=== PATIENT | female | born 1955 | race Caucasian/White ===

== ENCOUNTER 2019-03-08 09:37 | Outpatient (CLI) | payer OTHER ==
[~2019-03-08 09:37] MED LIST: GADOBUTROL 10 MMOL/10 ML VIAL ONE
[2019-03-08] MEDS ORDERED: GADOBUTROL 10 MMOL/10 ML VIAL IVP ONE (10:37)
--- NOTE | 2019-03-08 11:48 | MRI Report ---
Reason: MENINGIOMA Procedure Date: 03/08/2019 Accession Number: [id number] / [id number] Procedure: MRI - Brain W/WO CPT Code: FULL RESULT: EXAM: MRI BRAIN WITHOUT AND WITH CONTRAST EXAM DATE: 03/08/2019 10:48 AM. CLINICAL HISTORY: Stated diagnosis of meningioma. Intracranial mass follow-up is requested. Previously reported densely calcified dural-based anterior left parafalcine frontal region abnormality. COMPARISON: None. TECHNIQUE: Multiplanar, multisequence T1-weighted and fluid-sensitive MR sequences of the brain were performed before and after administration of intravenous contrast. Sequences optimized for routine evaluation. Other: None. IV Contrast: 7 mL Gadavist. FINDINGS: Far left anterior parafalcine extra-axial dural based ovoid lesion that shows essentially complete absence of signal consistent with a densely calcified process. Minimal if any associated enhancement. This lesion measures about 14 mm AP, 19 mm transverse and 17 mm craniocaudal. No significant impingement of the adjacent brain. Unremarkable appearance of the adjacent frontal bone. The appearance is of a chronic benign calcified process, possibly meningioma. No other evidence for intracranial enhancing or space-occupying lesion. No acute abnormality such as hemorrhage, stroke or hydrocephalus. Normal MRI appearance of the brain for age. No significant white matter signal changes. Contrast opacification of the major dural venous sinuses is present as expected. The major arterial skull base flow voids are present. Previous lens extractions from the globes. Nonspecific patchy and confluent inferior and lateral right mastoid fluid signal. IMPRESSION: 1. Findings are consistent with densely mineralized benign appearing extraaxial dural based far anterior left parafalcine lesion which may be a chronically calcified meningioma. No impingement of the adjacent brain. 2. No acute intracranial abnormality, age-appropriate appearance of the brain. 3. Right mastoid fluid signal. RADIA
== END 2019-03-08 09:38 | disposition home or self-care (01) ==
LOC: DI 09:37
PROVIDERS: ATTEND Physician Assistant Medical
DX: D32.0 Benign neoplasm of cerebral meninges (principal)
CPT/HCPCS: 70553; A9585

== ENCOUNTER 2023-01-05 02:07 | Inpatient (IN) | payer MEDICARE, OTHER ==
[2023-01-05] MEDS ORDERED: MORPHINE 10 MG/ML VIAL IVP STA ×2 (02:18→06:08)
[2023-01-05] MEDS ORDERED: ONDANSETRON 4 MG/2 ML VIAL IVP STA (02:18)
[2023-01-05] MEDS ORDERED: SODIUM CHLORIDE 0.9% 1,000 ML IV STA ×3 (02:18→06:07)
[2023-01-05 02:26] LABS: BASOPHILS % (AUTO) 0.6 %; EOSINOPHILS # (AUTO) 0.1 10^3/uL (0.0-0.7); EOSINOPHILS % (AUTO) 1.5 %; HCT - HEMATOCRIT 32.2 % (37.0-47.0); HGB - HEMOGLOBIN 9.5 g/dL (12.0-16.0); LYMPHOCYTES # (AUTO) 1.5 10^3/uL (1.5-3.5); LYMPHOCYTES % (AUTO) 21.9 %; MEAN CORPUSCULAR HEMOGLOBIN 26.3 pg (27.0-31.0); MEAN CORPUSCULAR HGB CONC 29.5 g/dL (32.0-36.0); MEAN CORPUSCULAR VOLUME 89.2 fL (81.0-99.0); MEAN PLATELET VOLUME 9.1 fL (7.9-10.8); MONOCYTES # (AUTO) 0.5 10^3/uL (0.0-1.0); MONOCYTES % (AUTO) 7.4 %; NEUTROPHILS # (AUTO) 4.7 10^3/uL (1.5-6.6); PLT - PLATELET COUNT 260 10^3/uL (130-450); RED BLOOD COUNT 3.61 10^6/uL (4.20-5.40); WHITE BLOOD COUNT 6.9 x10^3/uL (4.8-10.8)
[2023-01-05 02:30] LABS: SLIDE REVIEW? Indicated
[2023-01-05 02:40] LABS: ALBUMIN 4.1 g/dL (3.2-5.5); ALBUMIN/GLOBULIN RATIO 1.4 (1.0-2.2); BILIRUBIN,TOTAL 0.5 mg/dL (0.2-1.0); CALCIUM 9.3 mg/dL (8.5-10.3); CREATININE 0.9 mg/dL (0.4-1.0); POTASSIUM 4.2 mmol/L (3.5-5.0)
[2023-01-05 02:42] LABS: PLATELET ESTIMATE, MANUAL NORMAL (130-450,000) (NORMAL); PLATELET MORPHOLOGY NORMAL APPEARANCE (NORMAL); RBC MORPHOLOGY (MULTIPLE) 1+ ANISOCYTOSIS (NORMAL); WBC MORPHOLOGY (MULTIPLE) NORMAL APPEARANCE (NORMAL)
--- OUTSIDE RECORDS SUMMARY | 2023-01-05 02:53 | EXTERNAL MEDICAL SUMMARY RPT | Continuity of Care Document ---
Author Name Unknown Address [address] [place] [address] Phone Organization [place] Address [address] [place] [address] Phone Problems date description facility 2022-10-11 14:02 Anemia, unspecified [facility] 2022-10-11 14:02 Crohn's disease of s mall intestine without complications [facility] 2022-10-13 15:54 Crohn's disease of s mall intestine without complications [facility] 2022-12-21 11:52 [facility]:52 Crohn's disease of s mall intestine without complications [facility] 2022-12-21 11:52 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 [facility] 2022-12-21 11:52 Acquired absence of other specified parts of digestive tract [facility] 2022-12-21 11:55 [facility] 11:55 Crohn's disease of s mall intestine without complications [facility] 2022-12-21 11:55 [facility] (current) use of anti coagulants [facility] 2022-12-21 11:55 Acquired absence of other specified parts of digestive tract [facility] 2022-12-22 18:24 Iron deficiency anemia, unspeci [facility] 2022-12-22 18:24 Crohn's disease, unspecified, w [facility] 2022-12-25 08:28 Iron deficiency anemia, [facility] 2022-12-25 08:28 Crohn's disease, unspecified, w [facility] 2022-12-26 12:57 [facility]57 Crohn's disease, unspecified, [facility] 2022-12-26 13:17 [facility] 13:17 Crohn's disease, unspecified, w [facility] 2022-12-26 15:15 Iron deficiency anemia, unspeci [facility] 2022-12-26 15:15 Crohn's disease, unspecified, w [facility] Results/Labs test date facility value unit notes
[2023-01-05] MEDS ORDERED: MORPHINE 2 MG/ML CARPUJECT IVP STA ×2 (03:05→04:15)
--- NOTE | 2023-01-05 03:07 | ED Physician Documentation ---
PD HPI ABD PAIN - Stated complaint Stated Complaint: VOMITING - Chief complaint Chief Complaint: Abd Pain - History obtained from History obtained from: Patient - Additional information Additional information: 67yF with pmh crohns p/w cramping upper abdominal pain radiating diffusely, intermittent since 11pm with associated nbnb n/v. patient states she received iron infusions this week and is supposed to get crohns treatment remicaid for the first time tomorrow. denies blood in stool but states she regularly has about 7 episodes of loose stool daily. denies fever Review of Systems Constitutional: denies: Fever, Chills Cardiac: denies: Chest pain / pressure Respiratory: denies: Dyspnea GI: reports: Abdominal Pain, Nausea, Vomiting, Diarrhea. denies: Hematemesis, Bloody / black stool : denies: Dysuria PD PAST MEDICAL HISTORY - Past Medical History Cardiovascular: Other Respiratory: None Endocrine/Autoimmune: None GI: Ulcerative colitis : Kidney stones HEENT: None Psych: None Musculoskeletal: None Derm: None - Past Surgical History Past Surgical History: Yes General: Appendectomy, Bowel surgery, Colonoscopy, EGD /DOCK WORKER: Hysterectomy - Present Medications Home Medications: Ambulatory Orders Medication Instructions Recorded Confirmed Citalopram Hydrobromide [Celexa] 40 mg PO DAILY 02/04/13 04/21/15 Estradiol [Vivelle-Dot] 1 each TD ONCE 04/14/15 04/21/15 Fluticasone [Flonase] 1 sprays LUMA DAILY 04/14/15 04/21/15 Multivitamin [Multivitamins] 1 each PO DAILY 04/14/15 04/21/15 - Allergies Allergies/Adverse Reactions: Allergies Allergy/AdvReac Type Severity Reaction Status Date / Time hydromorphone HCl * Allergy Severe Hallucinati Verified 01/05/23 02:17 [From Dilaudid] ons Sulfa (Sulfonamide Allergy Unknown Unknown Verified 01/05/23 02:17 Antibiotics) Latex Bandages AdvReac Intermediate Rash Uncoded 01/05/23 02:17 - Social History Does the pt smoke?: No Smoking Status: Never smoker Does the pt drink ETOH?: Yes Does the pt have substance abuse?: No PD ED PE NORMAL - Vitals Vital signs reviewed: Yes - General General: Alert and oriented X 3, Well developed/nourished, Other (uncomfortable appearing) - HEENT HEENT: Atraumatic, PERRL - Neck Neck: Supple, no meningeal sign - Cardiac Cardiac: RRR - Respiratory Respiratory: No respiratory distress, Clear bilaterally - Abdomen Abdomen: Non tender, Non distended, Other (discomfort to palpation diffusely) - Rectal Rectal: Pt declined - Derm Derm: Normal color, Warm and dry Results - Vitals Vitals: Vital Signs - 24 hr 01/05/23 01/05/23 01/05/23 02:14 03:00 04:00 Temperature 36.2 C L Heart Rate 103 H 86 86 Respiratory 18 16 16 Rate Blood Pressure 143/94 H 123/78 130/77 O2 Saturation 99 99 100 Oxygen O2 Source Room air - Labs Labs: Laboratory Tests 01/05/23 01/05/23 01/05/23 02:22 02:22 05:18 WBC 6.9 RBC 3.61 L Hgb 9.5 L Hct 32.2 L MCV 89.2 MCH 26.3 L MCHC 29.5 L RDW 22.0 H Plt Count 260 MPV 9.1 Neut # (Auto) 4.7 Lymph # (Auto) 1.5 [place] # (Auto) 0.5 Eos # (Auto) 0.1 Baso # (Auto) 0.0 Absolute Nucleated RBC 0.00 Nucleated RBC % 0.0 Manual Slide Review Indicated WBC Morphology NORMAL APPEARANCE Platelet Estimate NORMAL (130-450,000) Platelet Morphology NORMAL APPEARANCE RBC Morph Micro Appear 1+ ANISOCYTOSIS Sodium 138 Potassium 4.2 Chloride 106 Carbon Dioxide 24 Anion Gap 8.0 BUN 15 Creatinine 0.9 Estimated GFR (MDRD) 63 L Glucose 117 H Calcium 9.3 Total Bilirubin 0.5 AST 33 ALT 25 Alkaline Phosphatase 64 Total Protein 7.0 Albumin 4.1 Globulin 2.9 Albumin/Globulin Ratio 1.4 Lipase 27 Urine Color YELLOW Urine Clarity CLEAR Urine pH 5.5 Ur Specific [place] 1.015 Urine Protein NEGATIVE Urine Glucose (UA) NEGATIVE Urine Ketones NEGATIVE Urine Occult Blood NEGATIVE Urine Nitrite NEGATIVE Urine Bilirubin NEGATIVE Urine Urobilinogen 0.2 (NORMAL) Ur Leukocyte Esterase NEGATIVE Ur Microscopic Review NOT INDICATED Urine Culture Comments NOT INDICATED PD Medical Decision Making - ED course ED course: 67yF with pmh crohns p/w diffuse cramping abdominal pain she associates with prior crohns flares. cbc, abdominal panel, IVF and morphine ordered. CBC showed anemia with hb 9.5, down from 11.3 on october 13, just 3 months prior. patient denies bloody stool and states she's been dealing with iron deficiency anemia and malabsorption for years. Patient tolerating ice chips, stated IV 4mg morphine brought pain down from 10/10 to 5/10. requesting more pain meds. declined CT a/p, stating this is c/w prior crohns flares. she is declining steroids or other meds, stating she is supposed to get remicaid treatment tomorrow morning. still with pain at 6am. SBO on CT. d/w commissioning agent surgeon Dr. Beckman who agrees to follow. plan to admit telehealth. Departure - Departure Disposition: 67 [facility] DC/Xfer Clinical Impression: SBO (small bowel obstruction) Condition: Stable
[2023-01-05] MEDS ORDERED: iohexoL-300 100 ML VIAL ONE (04:44)
[2023-01-05] MEDS ORDERED: iohexoL-300 100 ML VIAL IVP ONE (05:10)
[2023-01-05 05:28] LABS: BILIRUBIN,URINE NEGATIVE (NEGATIVE); GLUCOSE, URINE (UA) NEGATIVE (NEGATIVE); KETONES,URINE (UA) NEGATIVE (NEGATIVE); LEUKOCYTE ESTERASE, URINE NEGATIVE (NEGATIVE); NITRITE,URINE NEGATIVE (NEGATIVE); OCCULT BLOOD,URINE NEGATIVE (NEGATIVE); PH,URINE 5.5 PH (5.0-7.5); PROTEIN,URINE NEGATIVE (NEGATIVE); UROBILINOGEN,URINE 0.2 (NORMAL) E.U./dL (NORMAL)
[2023-01-05 05:29] LABS: CLARITY,URINE CLEAR (CLEAR)
--- NOTE | 2023-01-05 07:09 | HISTORY & PHYSICAL EXAMINATION ---
History and Physical - History and Physical chief complaint abdominal pain History of present illness this is a 67 year old female past medical history significant for Cronus, hypertension, anemia requiring transfusions and iron infusions, history of factor five lighting deficiency who presented to the emergency room with chief complaint of today's history of severe abdominal pain. It apparently started about yesterday in the afternoon she thought it was due to dehydration because in the past she's had similar symptoms so she attempted rhythm of fluid by getting to the evening it's getting worse and worse so she/she decided to seek medical attention. She describes pain as crampy intermittent in nature had one episode of vomiting which is described as nonbloody number Delos vomitus. [facility] patients also noted to have diarrhea because of ilio-anal surgery.patient also with history of DVT/PE workup showed that patient had factor V leiden deficiency on Eliquis for anticoagulation. Patient has had Crohn's for about 25 years was supposed to status Remicade today. in the emergency room patient was evaluated and workup showed patient had bowel obstruction and clinical patient abdomen was severely tender and mildly distended. Patient pain improved slightly with IV morphine in the emergency room. Was is a startling IV fluids will saline at hundred and 50 animals per hour. Consultation was placed with surgery as per the ED provider and the recommended patient admitted Lily consult on the patient. Patient appeared comfortable lay in bed speaking for sentences does not appear to be in acute distress. Past medical history include as above hypertension, iron deficiency anemia, factor five lighting deficiency, Crohn's colitis, Surgery patients status post hysterectomy, wedge resection,ilio-anal bypasssurgery Family history no not history of hypertension diabetes or coronary artery disease. Medications as listed [employer] systems total offenses and reviewed all negative other than those mentioned above Allergies to Dilaudid physical exam general appearance patient appeared comfortable in bed complain of abdominal pain awake and alert just received morphine so she seemed to be doing better in respondent. HEENT normocephalic atraumatic lungs are clear cardiovascular regular rate and rhythm Abdomen malady standard tender no rebound no garden bowel sounds positive no masses palpated. Extremities no edema versus no cyanosis no clubbing. Exams was done based on video nurse assisted Labs reviewed imagine reviewed assessments and plan Bowel obstruction appear to mechanical likely multifactorial with underlining grounds and history of strictures no history of adhesions. Patient admitted to medical service and the hospital steam NG tube placed in the emergency room IV fluids would normal saline at hundred 50 mph morphine 2 mg IV Q4 hours as needed for pain will adjust accordingly with the dating. Surgery was consulted in the museum will follow up with your recommendations History of PE/DVT factorV leiden will continue anticoagulation for now for Ray surgery at this point admitting there's going to be any surgical intervention appear to more conservative management IV fluid pain medication pain control. NG tube for decompression. And serial imaging. History of Crohn's patient was to start with Remicade will. Surgery may be G.I. be away in a patient need to be started. Iron deficiency anemia stable will monitor closely. Chronic diarrhea/high risk of dehydration IV fluids as above DVT prophylaxis patient on Eliquis GI prophylaxis not clinical indicated plan discussed the patient's and nurse at bedside as well as ED attending answer all questions to the best of my ability hospital SDT will take over in the morning. Dr Noemi Jaime
[2023-01-05] MEDS ORDERED: SODIUM CHLORIDE FLUSH 0.9% 10 ML SYRINGE IVP PRN (07:18)
[2023-01-05] MEDS ORDERED: ACETAMINOPHEN 325 MG TABLET PO PRN (07:18)
[2023-01-05] MEDS ORDERED: ONDANSETRON 4 MG/2 ML VIAL IVP PRN (07:18)
[2023-01-05] MEDS ORDERED: ESTRADIOL TD SCH (07:45)
--- NOTE | 2023-01-05 07:51 | CT Report ---
PROCEDURE: ABDOMEN/PELVIS W INDICATIONS: diffuse abd pain CONTRAST: Omni 300 100ml TECHNIQUE: After the administration of IV contrast, 5 mm thick sections acquired from the diaphragms to the symp hysis. 5 mm thick coronal and sagittal reformats were acquired. For radiation dose reduction, the f ollowing was used: automated exposure control, adjustment of mA and/or kV according to patient size. COMPARISON: CT of abdomen and pelvis with, 10/03/2013. FINDINGS: Image quality: Excellent. Lung bases and heart: Left basilar atelectasis. Small hiatal hernia. Liver: No solid mass. Gallbladder and biliary tree: There are gallstones. No biliary dilation. Spleen: No splenomegaly. Pancreas: No pancreatic ductal dilation. Adrenals: No adrenal nodule. Kidneys and ureters: No hydronephrosis. No renal cystic lesion which requires follow up. No solid mas s. Bowel and peritoneum: There is fluid in the stomach with an air-fluid level. Proximal small bowel loo ps are filled with fluid measuring up to 3.8 cm in diameter. There is transitional point distally in the mid abdomen, measuring involving the ileum. There are multiple air-fluid levels in small intestin e. The CT findings are suspicious for small bowel obstruction. There are postsurgical changes with to david colectomy. There is mild segmental thickening proximal to the ileoanal anastomosis. No pathologic free fluid. Lymph nodes: No central or retroperitoneal adenopathy. Vessels: No infrarenal aortic aneurysm. PELVIS Reproductive organs: Unremarkable. Bladder: No abnormal wall thickening, accounting for underdistension. Pelvic lymph nodes: No pelvic adenopathy by size criteria. Bones: No aggressive osseous abnormality. Scoliosis and degenerative changes in lumbar spine. Other: No significant ventral or inguinal hernia. IMPRESSION: 1. Small bowel obstruction. 2. Total colectomy. There is ileoanal anastomosis. There is segmental thickening proximal to the surg ical anastomosis. Findings are concordant with preliminary interpretation provided by [facility]. Reviewed by: Hamilton Wadsworth MD on 01/05/2023 7:50 AM PDT Approved by: Hamilton Wadsworth MD on 01/05/2023 7:50 AM PDT Station ID: [id number]
[2023-01-05] MEDS ORDERED: LACTATED RINGERS 1,000 ML IV SCH ×2 (08:00→14:53)
[2023-01-05] MEDS: FLUTICASONE NASAL SPRAY NAS SCH (08:30)
[2023-01-05] MEDS: CITALOPRAM HYDROBROMIDE 20 MG TABLET PO SCH (08:30)
[2023-01-05] MEDS: SODIUM CHLORIDE FLUSH 0.9% 10 ML SYRINGE IVP SCH ×2 (08:31→19:34)
[2023-01-05] MEDS: KETOROLAC 15 MG/ML VIAL IVP PRN ×2 (08:47→20:13)
--- NOTE | 2023-01-05 10:59 | PHARMACY PROGRESS NOTE ---
- Best Possible Medication History Admit Date and Time: 01/05/23 0641 Processed by: Pharmacy Medication History completed: Yes Patient Interview: Completed Secondary Source(s): Pharmacy records As the person ultimately responsible for medication therapy, providers are able to order a medication from an existing home medication list in [facility] via the "Reconcile Routine" prior to Confirmation of that medication by director sales support. Such practice is discouraged except when the physician, in their clinical judgment, deems that a medical need exists for a medication without regard to previous use.
[2023-01-05 11:36] LABS: ABSOLUTE RETICS # AUTO 0.171 10^6/uL (0.020-0.110); RED BLOOD COUNT 3.22 10^6/uL (4.20-5.40); RETICULOCYTE COUNT % (AUTO) 5.3 % (0.5-2.3)
[2023-01-05] MEDS: MULTIVITAMIN W/MINERALS TABLET PO SCH (11:56)
[2023-01-05 11:57] LABS: % IRON SATURATION 66 % (20-50); IRON 257 ug/dL (28-170); TOTAL IRON BINDING CAPACITY 389 ug/dL (250-450); TRANSFERRIN 278 mg/dL (192-382)
[2023-01-05 12:13] LABS: FERRITIN 300.2 ng/mL (11.0-306.8)
--- NOTE | 2023-01-05 15:00 | PROVIDER PROGRESS NOTE ---
Assessment/Plan - Problem List (1) SBO (small bowel obstruction) Assessment/Plan: consulted with surgeon, will follow up with the recommendations pt's inflamation factor CRP and ESR are at normal arrange, pt had hx of multiple abdominal surgery, likely adhesion. continue NPO NG tube placed in the emergency room. pt refuse before, now she agree to have NG tube, will order IV fluids pain control encourage pt ambulate possible try gastrgraf in 48 hours if SBO is not resolved History of PE/DVT with lightly factorV leiden. pt was not on anticoagulation medication at her home meds list now, add lovenox for DVT prophylaxis. History of Crohn's patient was to start with Remicade on today. Called pt's GI Dr. Reaves, recommended to hold remicade now, and if pt has operation, then let pt follow up with Dr. Reaves's office, and if not surgery, will let pt have Remicade. now pt's CRP and ESR are at normal. pt decline steroid as well. chronic anemia, will have iron anemia study, continue lab monitor Chronic diarrhea/high risk of dehydration IV fluids as above - Current Meds Current Meds: Current Medications Generic Name Dose Route Start Last Admin Trade Name Freq PRN Reason Stop Dose Admin Citalopram Hydrobromide 40 mg 01/05/23 09:00 01/05/23 08:30 Citalopram Hydrobromide 20 Mg Tablet PO 40 mg DAILY TALISHA Administration Fluticasone Propionate 1 sprays 01/05/23 09:00 01/05/23 08:30 Fluticasone Nasal [place] LUMA 1 spr DAILY TALISHA Administration Ketorolac Tromethamine 15 mg 01/05/23 06:47 01/05/23 08:47 Ketorolac 15 Mg/Ml Vial IVP 01/10/23 06:46 15 mg Q6HR PRN Administration Severe Pain (Level 7-10) Multivitamins/Minerals 1 tab 01/05/23 08:00 01/05/23 11:56 Multivitamin W/Minerals Tablet PO Not Given DAILYWM TALISHA Sodium Chloride 10 ml 01/05/23 09:00 01/05/23 08:31 Sodium Chloride Flush 0.9% 10 Ml Syringe IVP Not Given 0100,0900,1700 TALISHA - Lab Result Fish Bone Diagrams: 01/05/23 02:22 01/05/23 02:22 - Additional Planning My Orders: My Active Orders 01/05/23 14:53 Lactated Ringers [Lr] 1,000 ml IV 100 mls/hr 01/06/23 05:00 BMP - BASIC METABOLIC PANEL [CHEM] DAILYLAB CBC - COMP BLD CT W/AUTO DIFF [HEME] DAILYLAB 01/06/23 09:00 Enoxaparin [Lovenox] 40 mg SUBQ DAILY 01/07/23 05:00 BMP - BASIC METABOLIC PANEL [CHEM] DAILYLAB CBC - COMP BLD CT W/AUTO DIFF [HEME] DAILYLAB 01/08/23 05:00 BMP - BASIC METABOLIC PANEL [CHEM] DAILYLAB CBC - COMP BLD CT W/AUTO DIFF [HEME] DAILYLAB 01/09/23 05:00 BMP - BASIC METABOLIC PANEL [CHEM] DAILYLAB CBC - COMP BLD CT W/AUTO DIFF [HEME] DAILYLAB Subjective - Subjective Patient Reports: Feeling Better Objective Vital Signs: Vital Signs - 24 hr 01/05/23 01/05/23 01/05/23 02:14 03:00 04:00 Temperature 36.2 C L Heart Rate 103 H 86 86 Heart Rate [ Brachial] Respiratory 18 16 16 Rate Blood Pressure 143/94 H 123/78 130/77 Blood Pressure [Left Brachial artery] O2 Saturation 99 99 100 01/05/23 01/05/23 07:00 08:00 Temperature 36.7 C Heart Rate 90 Heart Rate [ 86 Brachial] Respiratory 18 18 Rate Blood Pressure 120/82 H Blood Pressure 107/63 [Left Brachial artery] O2 Saturation 91 L 97 Oxygen O2 Source Room air I&O (Last 24 Hrs): Intake and Output Totals x24h 01/03/23 01/04/23 01/05/23 23:59 23:59 23:59 Intake Total 2290.000 Balance 2290.000 General: Alert, Oriented x3, No acute distress HEENT: Atraumatic, EOMI Lymphatic: no adenopathy Neuro: Alert, Non Focal, Oriented Times 3 Cardiovascular: Regular rate, Normal S1, Normal S2 Respiratory: Chest non-tender, No respiratory distress Abdomen: Normal bowel sounds, Soft, No tenderness Extremities: No clubbing Skin: No rashes - Results Results: Laboratory Results WBC 6.9 x10^3/uL (4.8-10.8) 01/05/23 02:22 RBC 3.22 10^6/uL (4.20-5.40) L 01/05/23 11:16 Hgb 9.5 g/dL (12.0-16.0) L 01/05/23 02:22 Hct 32.2 % (37.0-47.0) L 01/05/23 02:22 MCV 89.2 fL (81.0-99.0) 01/05/23 02:22 MCH 26.3 pg (27.0-31.0) L 01/05/23 02:22 MCHC 29.5 g/dL (32.0-36.0) L 01/05/23 02:22 RDW 22.0 % (12.0-15.0) H 01/05/23 02:22 Plt Count 260 10^3/uL (130-450) 01/05/23 02:22 MPV 9.1 fL (7.9-10.8) 01/05/23 02:22 Reticulocyte % (Auto) 5.30 % (0.5-2.3) H 01/05/23 11:16 Neut # (Auto) 4.7 10^3/uL (1.5-6.6) 01/05/23 02:22 Lymph # (Auto) 1.5 10^3/uL (1.5-3.5) 01/05/23 02:22 [place] # (Auto) 0.5 10^3/uL (0.0-1.0) 01/05/23 02:22 Eos # (Auto) 0.1 10^3/uL (0.0-0.7) 01/05/23 02:22 Baso # (Auto) 0.0 10^3/uL (0.0-0.1) 01/05/23 02:22 Absolute Nucleated RBC 0.00 x10^3/uL 01/05/23 02:22 Nucleated RBC % 0.0 /100WBC 01/05/23 02:22 Manual Slide Review Indicated 01/05/23 02:22 WBC Morphology NORMAL APPEARANCE (NORMAL) 01/05/23 02:22 Platelet Estimate NORMAL (130-450,000) (NORMAL) 01/05/23 02:22 Platelet Morphology NORMAL APPEARANCE (NORMAL) 01/05/23 02:22 RBC Morph Micro Appear 1+ ANISOCYTOSIS (NORMAL) 01/05/23 02:22 ESR 6 mm/Hr (0-30) 01/05/23 11:16 Absolute Retic 0.171 10^6/uL (0.020-0.110) H 01/05/23 11:16 Sodium 138 mmol/L (135-145) 01/05/23 02:22 Potassium 4.2 mmol/L (3.5-5.0) 01/05/23 02:22 Chloride 106 mmol/L (101-111) 01/05/23 02:22 Carbon Dioxide 24 mmol/L (21-32) 01/05/23 02:22 Anion Gap 8.0 (6-13) 01/05/23 02:22 BUN 15 mg/dL (6-20) 01/05/23 02:22 Creatinine 0.9 mg/dL (0.4-1.0) 01/05/23 02:22 Estimated GFR (MDRD) 63 (>89) L 01/05/23 02:22 Glucose 117 mg/dL (70-100) H 01/05/23 02:22 Calcium 9.3 mg/dL (8.5-10.3) 01/05/23 02:22 Iron 257 ug/dL (28-170) H 01/05/23 11:16 TIBC 389 ug/dL (250-450) 01/05/23 11:16 % Saturation 66 % (20-50) H 01/05/23 11:16 Transferrin 278 mg/dL (192-382) 01/05/23 11:16 Ferritin 300.2 ng/mL (11.0-306.8) 01/05/23 11:16 Total Bilirubin 0.5 mg/dL (0.2-1.0) 01/05/23 02:22 AST 33 IU/L (10-42) 01/05/23 02:22 ALT 25 IU/L (10-60) 01/05/23 02:22 Alkaline Phosphatase 64 IU/L (42-121) 01/05/23 02:22 Lactate Dehydrogenase 132 IU/L (91-225) 01/05/23 11:16 C-Reactive Protein < 1.0 mg/dL (0-1.0) 01/05/23 11:16 Total Protein 7.0 g/dL (6.7-8.2) 01/05/23 02:22 Albumin 4.1 g/dL (3.2-5.5) 01/05/23 02:22 Globulin 2.9 g/dL (2.1-4.2) 01/05/23 02:22 Albumin/Globulin Ratio 1.4 (1.0-2.2) 01/05/23 02:22 Lipase 27 U/L (22-51) 01/05/23 02:22 Vitamin B12 354 pg/mL (180-914) 01/05/23 11:16 Urine Color YELLOW 01/05/23 05:18 Urine Clarity CLEAR (CLEAR) 01/05/23 05:18 Urine pH 5.5 PH (5.0-7.5) 01/05/23 05:18 Ur Specific [place] 1.015 (1.002-1.030) 01/05/23 05:18 Urine Protein NEGATIVE mg/dL (NEGATIVE) 01/05/23 05:18 Urine Glucose (UA) NEGATIVE mg/dL (NEGATIVE) 01/05/23 05:18 Urine Ketones NEGATIVE mg/dL (NEGATIVE) 01/05/23 05:18 Urine Occult Blood NEGATIVE (NEGATIVE) 01/05/23 05:18 Urine Nitrite NEGATIVE (NEGATIVE) 01/05/23 05:18 Urine Bilirubin NEGATIVE (NEGATIVE) 01/05/23 05:18 Urine Urobilinogen 0.2 (NORMAL) E.U./dL (NORMAL) 01/05/23 05:18 Ur Leukocyte Esterase NEGATIVE (NEGATIVE) 01/05/23 05:18 Ur Microscopic Review NOT INDICATED 01/05/23 05:18 Urine Culture Comments NOT INDICATED 01/05/23 05:18 - Procedures Procedures: Procedures RELEASE MEDIAN NERVE, OPEN APPROACH (04/21/15) ABX Reporting Has patient been on IV antibiotics over the past 48 hours?: No Current Medications - Current Medications Current Medications: Active Medications Acetaminophen (Acetaminophen 325 Mg Tablet) 650 mg PO Q4HR PRN PRN Reason: Pain 1 to 4, or Fever Citalopram Hydrobromide (Citalopram Hydrobromide 20 Mg Tablet) 40 mg PO DAILY [facility] Last Admin: 01/05/23 08:30 Dose: 40 mg Enoxaparin Sodium (Enoxaparin 40 Mg/0.4 Ml Syringe) 40 mg SUBQ DAILY [facility] Fluticasone Propionate (Fluticasone Nasal [place]) 1 sprays LUMA DAILY [facility] Last Admin: 01/05/23 08:30 Dose: 1 spr Lactated Ringer's (Lr) 1,000 mls @ 100 mls/hr IV .Q10H [facility] Ketorolac Tromethamine (Ketorolac 15 Mg/Ml Vial) 15 mg IVP Q6HR PRN PRN Reason: Severe Pain (Level 7-10) Stop: 01/10/23 06:46 Last Admin: 01/05/23 08:47 Dose: 15 mg Morphine Sulfate (Morphine 2 Mg/Ml Carpuject) 2 mg IVP Q2HR PRN PRN Reason: Pain 8 to 10 Multivitamins/Minerals (Multivitamin W/Minerals Tablet) 1 tab PO DAILYWM [facility] Last Admin: 01/05/23 11:56 Dose: Not Given Ondansetron HCl (Ondansetron 4 Mg/2 Ml Vial) 4 mg IVP Q6HR PRN PRN Reason: Nausea / Vomiting Pantoprazole Sodium (Pantoprazole 40 Mg Vial) 40 mg IVP QDAC [facility] Sodium Chloride (Sodium Chloride Flush 0.9% 10 Ml Syringe) 10 ml IVP PRN PRN PRN Reason: NEEDED PER PROVIDER ORDERS Sodium Chloride (Sodium Chloride Flush 0.9% 10 Ml Syringe) 10 ml IVP 0100,0900,1700 [facility] Last Admin: 01/05/23 08:31 Dose: Not Given Citalopram Hydrobromide [Celexa] 40 mg PO DAILY 02/04/13 Fluticasone [Flonase] 1 sprays LUMA DAILY 04/14/15 Multivitamin [Multivitamins] 1 each PO DAILY 04/14/15 Biotin 1 tab PO DAILY 01/05/23 Echinacea Purpurea Aerial Ext [Echinacea] 1 cap PO DAILY 01/05/23
[2023-01-05] MEDS: MORPHINE 2 MG/ML CARPUJECT IVP PRN ×3 (15:49→22:23)
[2023-01-05] MEDS: PANTOPRAZOLE 40 MG VIAL IVP SCH (16:20)
--- NOTE | 2023-01-05 16:57 | CONSULTATION NOTE ---
Referring Provider Consult Date: 01/05/23 Chief Complaint - Chief Complaint Chief Complaint: Colicky abdominal pain History of Present Illness - Admitted From Admitted From:: Emergency room - History Obtained From History obtained from: Patient Exam Limitations: None - History of Present Illness HPI Comment/Other: This patient is a 67-year female with a number of underlying medical comorbidities, including a 25-year history of Crohn's disease who presented to the emergency room with a 24-hour history of crampy abdominal pain associated with obstipation. Patient is also developed anorexia and one episode of vomiting. She describes her pain as being improved. Upon presentation to the emergency room she underwent a work-up which was suggestive of a partial small intestinal obstruction, prompting surgical consultation. Past medical history is significant for hypertension, factor V Leiden deficienc y, deep venous thrombosis with pulmonary embolus Past surgery includes a subtotal colectomy with ileoanal anastomosis, total abdominal hysterectomy. Her current medications include Remicade and Eliquis. She describes no drug allergies. She describes no significant tobacco or ethanol intake. Family history is remarkable for hypertension. A comprehensive systems review was conducted and is otherwise none contributory. 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 - Family & Social History Family History: Mother: , Father: Living arrangement: At home Meds/Allgy - Home Medications Home Medications: Ambulatory Orders Medication Instructions Recorded Confirmed Citalopram Hydrobromide [Celexa] 40 mg PO DAILY 02/04/13 01/05/23 Fluticasone [Flonase] 1 sprays LUMA DAILY 04/14/15 01/05/23 Multivitamin [Multivitamins] 1 each PO DAILY 04/14/15 01/05/23 Biotin 1 tab PO DAILY 01/05/23 01/05/23 Echinacea Purpurea Aerial Ext 1 cap PO DAILY 01/05/23 01/05/23 [Echinacea] - Allergies Allergies/Adverse Reactions: Allergies Allergy/AdvReac Type Severity Reaction Status Date / Time hydromorphone HCl * Allergy Severe Hallucinati Verified 01/05/23 02:17 [From Dilaudid] ons Sulfa (Sulfonamide Allergy Unknown Unknown Verified 01/05/23 02:17 Antibiotics) Latex Bandages AdvReac Intermediate Rash Uncoded 01/05/23 02:17 Review of Systems - Other Findings Other Findings: A comprehensive systems review was conducted and is otherwise noncontributory. Exam - Vital Signs Vital Signs: Vital Signs x48h Temp Pulse Resp BP Pulse Ox 01/05/23 16:44 98.8 F 83 16 118/70 98 - Physical Exam Comments/Other: Physical exam demonstrates a well-developed moderate, mildly obese female in minimal acute distress. She is alert, coherent, and appropriately conversant. She is afebrile with stable vital signs The skin, head, ears, eyes, nose, throat are essentially normal. The mucous membranes appear adequately moistened. The thorax is symmetrical The lung jean baptiste are clear to auscultation with equal breath sounds noted bilaterally. No rubs, rales, or rhonchi are auscultated. Cardiac rhythm is regular without rubs, clicks, murmurs,'s or bruits. Peripheral pulses are easily palpable. The abdomen is soft and minimally tender in the right lower abdomen. No peritoneal findings are appreciated. Bowel sounds are easily is culpable but there is no evidence of acute bowel movement. There is no mass, distention, organomegaly, fluid wave, abdominal wall herniation, or costovertebral angle tenderness noted. No peritoneal findings are appreciated. Extremities demonstrate full active and passive range of motion. There are no obvious congenital or traumatic long bony deformities. There is no pretibial edema or calf tenderness. Cranial nerves II through XII are grossly intact. There are no somatosensory or motor deficits noted. The patient's voluntary movements are direct and well coordinated. No pathologic reflexes are appreciated. Glascow coma score is 15. Extraocular movements are intact. Gaze is conjugate. Pupils are 4 mm, equal, and round. There are no obvious somatosensory or motor deficits noted. The patient's voluntary movements are directed well coordinated. No pathologic reflexes are appreciated. The patient underwent a series of blood laboratories which demonstrate a normocytic anemia but normal electrolytes. Glomerular filtration rate is estimated at 63. A CT scan was performed which demonstrates a surgical absence of the uterus and of most of the colon. There are prominent loops of small intestine, in the ri ght lower abdomen without evidence of local fluid collection or mural pneumatosis. There appears to be a transition zone some in the somewhere in the right lower abdominal pelvis. There is fecalization of the small bowels. There is evidence of a J type, ileoanal anastomosis which appears patent. CT scan confirms fecalization with prominent loops of small intestine. Impression small intestinal obstruction without apparent etiology, possibly secondary to internal adhesion formation, or possible to a new Crohn's flare though this diagnosis is not supported by the lack of leukocyte or it with a normocytosis and a lack of abnormal electrolyte abnormalities. Recommendations #1 dietary restriction #2 nasogastric decompression #3 accurate I's and O's determination #4 crystalloid resuscitation #5 dietary restriction #6 continue DVT and pneumonia prophylaxis. The patient should also undergo incentive spirometry and proton pump inhibition. Continue to perform serial examination and if the patient does not continue to demonstrate improvement with medical measures then it may be required to explore her surgically in an effort to relieve the small intestinal obstruction. Conclusion/Plan - Lab Results Fish Bones: 01/05/23 02:22 01/05/23 02:22
--- NOTE | 2023-01-05 20:24 | XRAY Report ---
PROCEDURE: Chest for Line Placement INDICATIONS: [place] tube placement TECHNIQUE: One view of the chest was acquired. COMPARISON: None. FINDINGS: Surgical changes and devices: NG tube is present, the distal aspect of which is projected over the g astric fundus. The distal sidehole is also projected over the gastric fundus. Lungs and pleura: No pleural effusions or pneumothorax. Lungs are clear. Mediastinum: Mediastinal contours appear normal. Heart size is normal. Bones and chest wall: No suspicious bony lesions. Overlying soft tissues appear unremarkable. IMPRESSION: No acute cardiopulmonary process. NG tube as above. Reviewed by: Bebe Krueger MD on 01/05/2023 8:23 PM PDT Approved by: Bebe Krueger MD on 01/05/2023 8:23 PM PDT Station ID: [id number]
[2023-01-05] MEDS: traZODone 50 MG TABLET PO SCH (21:33)
[2023-01-05] MEDS: DEXTROSE 5%-0.9% NACL 1,000 ML IV SCH (22:25)
[2023-01-06] MEDS: SODIUM CHLORIDE FLUSH 0.9% 10 ML SYRINGE IVP SCH ×3 (01:20→17:02)
[2023-01-06] MEDS: KETOROLAC 15 MG/ML VIAL IVP PRN ×3 (01:26→15:49)
[2023-01-06] MEDS: MORPHINE 2 MG/ML CARPUJECT IVP PRN ×5 (01:26→19:16)
[2023-01-06] MEDS: MULTIVITAMIN W/MINERALS TABLET PO SCH (07:51)
[2023-01-06] MEDS: PANTOPRAZOLE 40 MG VIAL IVP SCH (07:51)
[2023-01-06 07:55] LABS: CALCIUM 8.1 mg/dL (8.5-10.3); CREATININE 0.9 mg/dL (0.4-1.0); POTASSIUM 4.2 mmol/L (3.5-5.0)
[2023-01-06 08:03] LABS: BASOPHILS % (AUTO) 0.4 %; EOSINOPHILS # (AUTO) 0.1 10^3/uL (0.0-0.7); EOSINOPHILS % (AUTO) 2.3 %; HCT - HEMATOCRIT 26.2 % (37.0-47.0); HGB - HEMOGLOBIN 7.6 g/dL (12.0-16.0); LYMPHOCYTES # (AUTO) 0.9 10^3/uL (1.5-3.5); LYMPHOCYTES % (AUTO) 19.5 %; MEAN CORPUSCULAR VOLUME 93.2 fL (81.0-99.0); MEAN PLATELET VOLUME 10.8 fL (7.9-10.8); MONOCYTES # (AUTO) 0.5 10^3/uL (0.0-1.0); MONOCYTES % (AUTO) 10.9 %; NEUTROPHILS # (AUTO) 3.2 10^3/uL (1.5-6.6); NEUTROPHILS % (AUTO) 66.5 %; PLT - PLATELET COUNT 214 10^3/uL (130-450); RED BLOOD COUNT 2.81 10^6/uL (4.20-5.40); RED CELL DISTRIBUTION WIDTH 22.7 % (12.0-15.0); WHITE BLOOD COUNT 4.8 x10^3/uL (4.8-10.8)
[2023-01-06 08:18] LABS: PLATELET ESTIMATE, MANUAL NORMAL (130-450,000) (NORMAL); PLATELET MORPHOLOGY NORMAL APPEARANCE (NORMAL); SLIDE REVIEW? Indicated
[2023-01-06] MEDS: CITALOPRAM HYDROBROMIDE 20 MG TABLET PO SCH (08:54)
[2023-01-06] MEDS: ENOXAPARIN 40 MG/0.4 ML SYRINGE SUBQ SCH (08:55)
[2023-01-06] MEDS: FLUTICASONE NASAL SPRAY NAS SCH (08:55)
[2023-01-06] MEDS: DEXTROSE 5%-0.9% NACL 1,000 ML IV SCH ×2 (09:07→19:15)
[2023-01-06 09:12] LABS: ABSOLUTE RETICS # AUTO 0.133 10^6/uL (0.020-0.110); RED BLOOD COUNT 2.84 10^6/uL (4.20-5.40); RETICULOCYTE COUNT % (AUTO) 4.69 % (0.5-2.3)
[2023-01-06 09:45] LABS: FERRITIN 313.1 ng/mL (11.0-306.8)
[2023-01-06 09:49] LABS: % IRON SATURATION 42 % (20-50); IRON 134 ug/dL (28-170); TOTAL IRON BINDING CAPACITY 316 ug/dL (250-450); TRANSFERRIN 226 mg/dL (192-382)
[2023-01-06] MEDS ORDERED: DIATRIZOATE MEGLU/DIATRIZO SOD 30 ML BOTTLE PO ONE (10:33)
--- NOTE | 2023-01-06 14:18 | PROVIDER PROGRESS NOTE ---
Assessment/Plan - Problem List (1) SBO (small bowel obstruction) Assessment/Plan: pt had a bid bowel movement on today. called surgeon report this development. surgeon recommend gastrografin by NG and have KUB monitor, if gastrografin go through, then we may d/c NG tube and start with clear diet first, and advance her diet as tolerated. History of PE/DVT with lightly factorV leiden. pt was on anticoagulation medication by pharmacy confirm, add lovenox for DVT prophylaxis. we will start with home eliquis as pt's clinic improved and no surgery indicated. History of Crohn's patient was to start with Remicade on today. Called pt's GI Dr. Reaves, recommended to hold remicade now, and if pt has operation, then let pt follow up with Dr. Reaves's office, and if not surgery, will let pt have Remicade. now pt's CRP and ESR are at normal. pt decline steroid as well. chronic anemia, HGB is reduce but also present some hemodilation as well, no GI bleeding is report. continue lab monitor Chronic diarrhea/high risk of dehydration, continue IV fluids as above - Current Meds Current Meds: Current Medications Generic Name Dose Route Start Last Admin Trade Name Freq PRN Reason Stop Dose Admin Citalopram Hydrobromide 40 mg 01/05/23 09:00 01/06/23 08:54 Citalopram Hydrobromide 20 Mg Tablet PO 40 mg DAILY TALISHA Administration Enoxaparin Sodium 40 mg 01/06/23 09:00 01/06/23 08:55 Enoxaparin 40 Mg/0.4 Ml Syringe SUBQ 40 mg DAILY TALISHA Administration Fluticasone Propionate 1 sprays 01/05/23 09:00 01/06/23 08:55 Fluticasone Nasal [place] LUMA Not Given DAILY TALISHA Dextrose/Sodium Chloride 1,000 mls @ 100 mls/hr 01/05/23 23:00 01/06/23 09:07 D5ns IV 100 mls/hr .Q10H TALISHA Administration Ketorolac Tromethamine 15 mg 01/05/23 06:47 01/06/23 07:51 Ketorolac 15 Mg/Ml Vial IVP 01/10/23 06:46 15 mg Q6HR PRN Administration Severe Pain (Level 7-10) Morphine Sulfate 2 mg 01/05/23 07:18 01/06/23 12:47 Morphine 2 Mg/Ml Carpuject IVP 2 mg Q2HR PRN Administration Pain 8 to 10 Multivitamins/Minerals 1 tab 01/05/23 08:00 01/06/23 07:51 Multivitamin W/Minerals Tablet PO 1 tab DAILYWM TALISHA Administration Pantoprazole Sodium 40 mg 01/05/23 16:00 01/06/23 07:51 Pantoprazole 40 Mg Vial IVP 40 mg QDAC TALISHA Administration Sodium Chloride 10 ml 01/05/23 09:00 01/06/23 09:07 Sodium Chloride Flush 0.9% 10 Ml Syringe IVP 10 ml 0100,0900,1700 TALISHA Administration Trazodone HCl 50 mg 01/05/23 21:00 01/05/23 21:33 Trazodone 50 Mg Tablet PO 50 mg QPM TALISHA Administration - Lab Result Fish Bone Diagrams: 01/06/23 07:18 01/06/23 07:18 - Additional Planning My Orders: My Active Orders 01/05/23 15:28 NG Tube Care [RC] Q4HR 01/05/23 16:00 Pantoprazole [Protonix] 40 mg IVP QDAC 01/05/23 23:00 Dextrose 5%-0.9% NaCl [D5ns] 1,000 ml IV 100 mls/hr 01/06/23 09:00 Enoxaparin [Lovenox] 40 mg SUBQ DAILY 01/06/23 09:06 Out of bed 6+ hours [RC] QID 01/06/23 12:29 SBFT Challenge Panel [XR] Routine 01/06/23 19:00 CBC - COMP BLD CT W/AUTO DIFF [HEME] Timed 01/07/23 05:00 BMP - BASIC METABOLIC PANEL [CHEM] DAILYLAB CBC - COMP BLD CT W/AUTO DIFF [HEME] DAILYLAB 01/08/23 05:00 BMP - BASIC METABOLIC PANEL [CHEM] DAILYLAB CBC - COMP BLD CT W/AUTO DIFF [HEME] DAILYLAB 01/09/23 05:00 BMP - BASIC METABOLIC PANEL [CHEM] DAILYLAB CBC - COMP BLD CT W/AUTO DIFF [HEME] DAILYLAB Subjective - Subjective Patient Reports: Feeling Better Objective Vital Signs: Vital Signs - 24 hr 01/05/23 01/06/23 01/06/23 16:44 00:00 08:00 Temperature 37.1 C 37.1 C 36.9 C Heart Rate [ 83 88 91 Brachial] Respiratory 16 17 18 Rate Blood Pressure 118/70 99/53 L 120/72 [Left Brachial artery] O2 Saturation 98 96 98 Oxygen O2 Source Room air I&O (Last 24 Hrs): Intake and Output Totals x24h 01/04/23 01/05/23 01/06/23 23:59 23:59 23:59 Intake Total 3986.750 1205 Output Total 50 300 Balance 3936.750 905 General: Alert, Oriented x3 HEENT: Atraumatic Neck: Supple Neuro: Alert, Non Focal, Oriented Times 3 Cardiovascular: Regular rate, Normal S1, Normal S2 Respiratory: Chest non-tender, No respiratory distress Abdomen: Normal bowel sounds, Soft Extremities: No clubbing, No edema - Results Results: Laboratory Results WBC 4.8 x10^3/uL (4.8-10.8) 01/06/23 07:18 RBC 2.81 10^6/uL (4.20-5.40) L 01/06/23 07:18 RBC 2.84 10^6/uL (4.20-5.40) L 01/06/23 07:18 Hgb 7.6 g/dL (12.0-16.0) L 01/06/23 07:18 Hct 26.2 % (37.0-47.0) L 01/06/23 07:18 MCV 93.2 fL (81.0-99.0) 01/06/23 07:18 MCH 27.0 pg (27.0-31.0) 01/06/23 07:18 MCHC 29.0 g/dL (32.0-36.0) L 01/06/23 07:18 RDW 22.7 % (12.0-15.0) H 01/06/23 07:18 Plt Count 214 10^3/uL (130-450) 01/06/23 07:18 MPV 10.8 fL (7.9-10.8) 01/06/23 07:18 Reticulocyte % (Auto) 4.69 % (0.5-2.3) H 01/06/23 07:18 Neut # (Auto) 3.2 10^3/uL (1.5-6.6) 01/06/23 07:18 Lymph # (Auto) 0.9 10^3/uL (1.5-3.5) L 01/06/23 07:18 [place] # (Auto) 0.5 10^3/uL (0.0-1.0) 01/06/23 07:18 Eos # (Auto) 0.1 10^3/uL (0.0-0.7) 01/06/23 07:18 Baso # (Auto) 0.0 10^3/uL (0.0-0.1) 01/06/23 07:18 Absolute Nucleated RBC 0.00 x10^3/uL 01/06/23 07:18 Nucleated RBC % 0.0 /100WBC 01/06/23 07:18 Manual Slide Review Indicated 01/06/23 07:18 WBC Morphology NORMAL APPEARANCE (NORMAL) 01/05/23 02:22 Platelet Estimate NORMAL (130-450,000) (NORMAL) 01/06/23 07:18 Platelet Morphology NORMAL APPEARANCE (NORMAL) 01/06/23 07:18 RBC Morph Micro Appear 2+ ANISOCYTOSIS (NORMAL) 2+ HYPOCHROMASIA (NORMAL) 1+ POLYCHROMASIA (NORMAL) 01/06/23 07:18 RBC Morph Micro Appear 2+ ANISOCYTOSIS (NORMAL) 2+ HYPOCHROMASIA (NORMAL) 1+ POLYCHROMASIA (NORMAL) 01/06/23 07:18 RBC Morph Micro Appear 2+ ANISOCYTOSIS (NORMAL) 2+ HYPOCHROMASIA (NORMAL) 1+ POLYCHROMASIA (NORMAL) 01/06/23 07:18 ESR 6 mm/Hr (0-30) 01/05/23 11:16 Absolute Retic 0.133 10^6/uL (0.020-0.110) H 01/06/23 07:18 Sodium 140 mmol/L (135-145) 01/06/23 07:18 Potassium 4.2 mmol/L (3.5-5.0) 01/06/23 07:18 Chloride 113 mmol/L (101-111) H 01/06/23 07:18 Carbon Dioxide 23 mmol/L (21-32) 01/06/23 07:18 Anion Gap 4.0 (6-13) L 01/06/23 07:18 BUN 13 mg/dL (6-20) 01/06/23 07:18 Creatinine 0.9 mg/dL (0.4-1.0) 01/06/23 07:18 Estimated GFR (MDRD) 63 (>89) L 01/06/23 07:18 Glucose 101 mg/dL (70-100) H 01/06/23 07:18 Calcium 8.1 mg/dL (8.5-10.3) L 01/06/23 07:18 Iron 134 ug/dL (28-170) 01/06/23 07:18 TIBC 316 ug/dL (250-450) 01/06/23 07:18 % Saturation 42 % (20-50) 01/06/23 07:18 Transferrin 226 mg/dL (192-382) 01/06/23 07:18 Ferritin 313.1 ng/mL (11.0-306.8) H 01/06/23 07:18 Total Bilirubin 0.5 mg/dL (0.2-1.0) 01/05/23 02:22 AST 33 IU/L (10-42) 01/05/23 02:22 ALT 25 IU/L (10-60) 01/05/23 02:22 Alkaline Phosphatase 64 IU/L (42-121) 01/05/23 02:22 Lactate Dehydrogenase 201 IU/L (91-225) 01/06/23 07:18 C-Reactive Protein < 1.0 mg/dL (0-1.0) 01/05/23 11:16 Total Protein 7.0 g/dL (6.7-8.2) 01/05/23 02:22 Albumin 4.1 g/dL (3.2-5.5) 01/05/23 02:22 Globulin 2.9 g/dL (2.1-4.2) 01/05/23 02:22 Albumin/Globulin Ratio 1.4 (1.0-2.2) 01/05/23 02:22 Lipase 27 U/L (22-51) 01/05/23 02:22 Vitamin B12 275 pg/mL (180-914) 01/06/23 07:18 Urine Color YELLOW 01/05/23 05:18 Urine Clarity CLEAR (CLEAR) 01/05/23 05:18 Urine pH 5.5 PH (5.0-7.5) 01/05/23 05:18 Ur Specific [place] 1.015 (1.002-1.030) 01/05/23 05:18 Urine Protein NEGATIVE mg/dL (NEGATIVE) 01/05/23 05:18 Urine Glucose (UA) NEGATIVE mg/dL (NEGATIVE) 01/05/23 05:18 Urine Ketones NEGATIVE mg/dL (NEGATIVE) 01/05/23 05:18 Urine Occult Blood NEGATIVE (NEGATIVE) 01/05/23 05:18 Urine Nitrite NEGATIVE (NEGATIVE) 01/05/23 05:18 Urine Bilirubin NEGATIVE (NEGATIVE) 01/05/23 05:18 Urine Urobilinogen 0.2 (NORMAL) E.U./dL (NORMAL) 01/05/23 05:18 Ur Leukocyte Esterase NEGATIVE (NEGATIVE) 01/05/23 05:18 Ur Microscopic Review NOT INDICATED 01/05/23 05:18 Urine Culture Comments NOT INDICATED 01/05/23 05:18 - Procedures Procedures: Procedures RELEASE MEDIAN NERVE, OPEN APPROACH (04/21/15) ABX Reporting Has patient been on IV antibiotics over the past 48 hours?: No Current Medications - Current Medications Current Medications: Active Medications Acetaminophen (Acetaminophen 325 Mg Tablet) 650 mg PO Q4HR PRN PRN Reason: Pain 1 to 4, or Fever Citalopram Hydrobromide (Citalopram Hydrobromide 20 Mg Tablet) 40 mg PO DAILY [facility] Last Admin: 01/06/23 08:54 Dose: 40 mg Enoxaparin Sodium (Enoxaparin 40 Mg/0.4 Ml Syringe) 40 mg SUBQ DAILY [facility] Last Admin: 01/06/23 08:55 Dose: 40 mg Fluticasone Propionate (Fluticasone Nasal [place]) 1 sprays LUMA DAILY [facility] Last Admin: 01/06/23 08:55 Dose: Not Given Dextrose/Sodium Chloride (D5ns) 1,000 mls @ 100 mls/hr IV .Q10H [facility] Last Admin: 01/06/23 09:07 Dose: 100 mls/hr Ketorolac Tromethamine (Ketorolac 15 Mg/Ml Vial) 15 mg IVP Q6HR PRN PRN Reason: Severe Pain (Level 7-10) Stop: 01/10/23 06:46 Last Admin: 01/06/23 07:51 Dose: 15 mg Morphine Sulfate (Morphine 2 Mg/Ml Carpuject) 2 mg IVP Q2HR PRN PRN Reason: Pain 8 to 10 Last Admin: 01/06/23 12:47 Dose: 2 mg Multivitamins/Minerals (Multivitamin W/Minerals Tablet) 1 tab PO DAILYWM [facility] Last Admin: 01/06/23 07:51 Dose: 1 tab Ondansetron HCl (Ondansetron 4 Mg/2 Ml Vial) 4 mg IVP Q6HR PRN PRN Reason: Nausea / Vomiting Pantoprazole Sodium (Pantoprazole 40 Mg Vial) 40 mg IVP QDAC [facility] Last Admin: 01/06/23 07:51 Dose: 40 mg Sodium Chloride (Sodium Chloride Flush 0.9% 10 Ml Syringe) 10 ml IVP PRN PRN PRN Reason: NEEDED PER PROVIDER ORDERS Sodium Chloride (Sodium Chloride Flush 0.9% 10 Ml Syringe) 10 ml IVP 0100,0900,1700 [facility] Last Admin: 01/06/23 09:07 Dose: 10 ml Trazodone HCl (Trazodone 50 Mg Tablet) 50 mg PO QPM [facility] Last Admin: 01/05/23 21:33 Dose: 50 mg Citalopram Hydrobromide [Celexa] 40 mg PO DAILY 02/04/13 Fluticasone [Flonase] 1 sprays LMUA DAILY 04/14/15 Multivitamin [Multivitamins] 1 each PO DAILY 04/14/15 Biotin 1 tab PO DAILY 01/05/23 Echinacea Purpurea Aerial Ext [Echinacea] 1 cap PO DAILY 01/05/23 Apixaban [Eliquis] 1 tab PO BID 01/06/23
[2023-01-06] MEDS ORDERED: DIATR MEGLU/DIATRIZOATE SODIUM 120 ML BOTTLE PO ONE (14:51)
--- NOTE | 2023-01-06 18:43 | XRAY Report ---
PROCEDURE: SBFT Challenge Panel INDICATIONS: GASTROGRAFIN CHALLENGE COMPARISON: CT of abdomen and pelvis dated 01/05/2023 FINDINGS: Gastrografin contrast is seen in the stomach lumen and proximal small bowel loops on initial images. Final image 4 hours after Gastrografin contrast infusion via and NG tube shows oral contrast reaching distal sigmoid colon/rectum at the level of surgical anastomosis. No contrast extravasation or gross peritoneal free air. IMPRESSION: Finding is suggestive of resolving distal small bowel obstruction. No gross peritoneal free air. No c ontrast extravasation. Reviewed by: James Logan MD on 01/06/2023 6:42 PM PDT Approved by: James Logan MD on 01/06/2023 6:42 PM PDT Station ID: [id number]
[2023-01-06 19:19] LABS: BASOPHILS % (AUTO) 0.4 %; EOSINOPHILS # (AUTO) 0.1 10^3/uL (0.0-0.7); EOSINOPHILS % (AUTO) 1.4 %; HCT - HEMATOCRIT 26.1 % (37.0-47.0); HGB - HEMOGLOBIN 7.7 g/dL (12.0-16.0); LYMPHOCYTES # (AUTO) 0.9 10^3/uL (1.5-3.5); LYMPHOCYTES % (AUTO) 18.3 %; MEAN CORPUSCULAR HEMOGLOBIN 26.8 pg (27.0-31.0); MEAN CORPUSCULAR HGB CONC 29.5 g/dL (32.0-36.0); MEAN CORPUSCULAR VOLUME 90.9 fL (81.0-99.0); MEAN PLATELET VOLUME 9.1 fL (7.9-10.8); MONOCYTES # (AUTO) 0.5 10^3/uL (0.0-1.0); MONOCYTES % (AUTO) 10.5 %; NEUTROPHILS # (AUTO) 3.4 10^3/uL (1.5-6.6); PLT - PLATELET COUNT 192 10^3/uL (130-450); RED BLOOD COUNT 2.87 10^6/uL (4.20-5.40); RED CELL DISTRIBUTION WIDTH 22.5 % (12.0-15.0); WHITE BLOOD COUNT 4.9 x10^3/uL (4.8-10.8)
[2023-01-06 20:12] LABS: PLATELET ESTIMATE, MANUAL NORMAL (130-450,000) (NORMAL); PLATELET MORPHOLOGY NORMAL APPEARANCE (NORMAL); SLIDE REVIEW? Indicated
[2023-01-06] MEDS: APIXABAN 2.5 MG TABLET PO SCH (20:49)
[2023-01-06] MEDS: traZODone 50 MG TABLET PO SCH (20:49)
[2023-01-07] MEDS: SODIUM CHLORIDE FLUSH 0.9% 10 ML SYRINGE IVP SCH ×2 (00:25→08:37)
[2023-01-07] MEDS: DEXTROSE 5%-0.9% NACL 1,000 ML IV SCH (05:28)
[2023-01-07 06:36] LABS: BASOPHILS % (AUTO) 0.6 %; EOSINOPHILS # (AUTO) 0.1 10^3/uL (0.0-0.7); EOSINOPHILS % (AUTO) 2.3 %; HCT - HEMATOCRIT 26.8 % (37.0-47.0); HGB - HEMOGLOBIN 7.7 g/dL (12.0-16.0); LYMPHOCYTES # (AUTO) 0.7 10^3/uL (1.5-3.5); LYMPHOCYTES % (AUTO) 19.9 %; MEAN CORPUSCULAR HEMOGLOBIN 26.8 pg (27.0-31.0); MEAN CORPUSCULAR HGB CONC 28.7 g/dL (32.0-36.0); MEAN CORPUSCULAR VOLUME 93.4 fL (81.0-99.0); MONOCYTES # (AUTO) 0.4 10^3/uL (0.0-1.0); MONOCYTES % (AUTO) 11.8 %; NEUTROPHILS # (AUTO) 2.3 10^3/uL (1.5-6.6); NEUTROPHILS % (AUTO) 65.1 %; PLT - PLATELET COUNT 191 10^3/uL (130-450); RED BLOOD COUNT 2.87 10^6/uL (4.20-5.40); RED CELL DISTRIBUTION WIDTH 22.7 % (12.0-15.0); WHITE BLOOD COUNT 3.5 x10^3/uL (4.8-10.8)
[2023-01-07 06:43] LABS: SLIDE REVIEW? Indicated
[2023-01-07 06:47] LABS: CALCIUM 7.9 mg/dL (8.5-10.3); CREATININE 0.7 mg/dL (0.4-1.0); POTASSIUM 3.3 mmol/L (3.5-5.0)
[2023-01-07 06:58] LABS: PLATELET ESTIMATE, MANUAL NORMAL (130-450,000) (NORMAL)
[2023-01-07] MEDS: PANTOPRAZOLE 40 MG VIAL IVP SCH (07:39)
[2023-01-07] MEDS: MULTIVITAMIN W/MINERALS TABLET PO SCH (08:36)
[2023-01-07] MEDS: APIXABAN 2.5 MG TABLET PO SCH (08:36)
[2023-01-07] MEDS: CITALOPRAM HYDROBROMIDE 20 MG TABLET PO SCH (08:36)
[2023-01-07] MEDS: FLUTICASONE NASAL SPRAY NAS SCH (08:37)
[2023-01-07] MEDS: ENOXAPARIN 40 MG/0.4 ML SYRINGE SUBQ SCH (08:37)
--- NOTE | 2023-01-07 15:41 | Discharge Plan ---
Discharge Plan Problem Reviewed?: Yes Disposition: Home, Self Care Condition: Stable Diet: Soft (Resume the dietary restrictions you have been taught, because of your Crohn's disease and prior bowel obstructions) Activity Restrictions: Activity as Tolerated Shower Restrictions: No Driving Restrictions: No Health Concerns: You were hospitalized to treat a small bowel obstruction, that was managed with bowel rest, upper GI tract decompression with an ng tube, a gastrograffin challenge and you got anti-nausea meds and pain meds and IV fluids. Your bowel has opened up. You are being discharged home today. Please resume your usual medications and management. Please see your specialist who handles your Crohn's disease and to have the Remicade dosing rescheduled. Plan of Treatment: As above. Care Goals: Improvement in symptoms and stabilization are the goals. Assessment: The patient understands and is agreeable with the plan. Additional Instructions or Follow Up instructions: If you have new or worsening symptoms, call your Crohn's disease doctor for advice, or come to the ER. No Smoking: If you smoke, Please STOP! Call for help. Follow-up with: Estevan Reaves MD [Physician No Access] -
[2023-01-07 15:42] VITALS: BP 141/72
--- NOTE | 2023-01-07 15:46 | DISCHARGE SUMMARY ---
"Discharge Summary Admit Date: 01/05/23 Discharge Date: 01/07/23 Discharging Provider: Dr Yady David Primary Care Provider: Dr Estevan Reaves Code Status: Attempt Resuscitation Condition at Discharge: Stable Discharge Disposition: 01 Home, Self Care - HPI History of Present Illness: This is a 67 year old female past medical history significant for Cronus, h ypertension, anemia requiring transfusions and iron infusions, history of factor five lighting deficiency who presented to the emergency room with chief complaint of today's history of severe abdominal pain. It apparently started about yesterday in the afternoon she thought it was due to dehydration because in the past she's had similar symptoms so she attempted rhythm of fluid by getting to the evening it's getting worse and worse so she/she decided to seek medical attention. She describes pain as crampy intermittent in nature had one episode of vomiting which is described as nonbloody number Delos vomitus. [facility] patients also noted to have diarrhea because of ilio-anal surgery.patient also with history of DVT/PE workup showed that patient had factor V leiden deficiency on Eliquis for anticoagulation. Patient has had Crohn's for about 25 years was supposed to status Remicade today. in the emergency room patient was evaluated and workup showed patient had bowel obstruction and clinical patient abdomen was severely tender and mildly distended. Patient pain improved slightly with IV morphine in the emergency room. Was is a startling IV fluids will saline at hundred and 50 animals per hour. Consultation was placed with surgery as per the ED provider and the recommended patient admitted Lily consult on the patient. Patient appeared comfortable lay in bed speaking for sentences does not appear to be in acute distress. Past medical history include as above hypertension, iron deficiency anemia, factor five lighting deficiency, Crohn's colitis, Surgery patients status post hysterectomy, wedge resection,ilio-anal bypasssurgery Family history no not history of hypertension diabetes or coronary artery disease. - CONSULTS | PROCEDURES Consultations: Dr Yoshi Beckman, gen surg - HOSPITAL COURSE Hospital Course: (1) SBO (small bowel obstruction) Patient initially refused an NG tube. General surgery was consulted who strictly advised she get the NG tube and she did. She was on IV fluids. She had a bowel movement by the following day, after NG decompression. The general surgeon then wanted her to have a Gastrografin challenge which was done, and the dye was seen in her lower bowel, and the NG was removed. She was started on clear liquids, and tolerated advance to soft, low residue diet. She was then discharged. (2) Crohn's disease Patient was to start on Remicade thru the [facility], but was admitted. Hospitalist called pt's GI specialist, Dr. Reaves, who recommended to hold Remicade now. Pt's CRP and ESR were normal. Pt declined being on steroids as well. (3) History of PE/DVT She has factorV leiden abnormality. Pt was on anticoagulation medication, and we had her briefly on Lovenox for prophylaxis but we resumed her home Eliquis dose, when she improved and no surgery was indicated. (4) Chronic anemia Admission Hgb was 9.5, decreased to 7.6, likely fromhemodilation, no GI bleeding was reported. - ALLERGIES Allergies/Adverse Reactions: Allergies Allergy/AdvReac Type Severity Reaction Status Date / Time hydromorphone HCl * Allergy Severe Hallucinati Verified 01/05/23 02:17 [From Dilaudid] ons Sulfa (Sulfonamide Allergy Unknown Unknown Verified 01/05/23 02:17 Antibiotics) Latex Bandages AdvReac Intermediate Rash Uncoded 01/05/23 02:17 - MEDICATIONS Home Medications: Ambulatory Orders Medication Instructions Recorded Confirmed Citalopram Hydrobromide [Celexa] 40 mg PO DAILY 02/04/13 01/05/23 Fluticasone [Flonase] 1 sprays LUMA DAILY 04/14/15 01/05/23 Multivitamin [Multivitamins] 1 each PO DAILY 04/14/15 01/05/23 Biotin 1 tab PO DAILY 01/05/23 01/05/23 Echinacea Purpurea Aerial Ext 1 cap PO DAILY 01/05/23 01/05/23 [Echinacea] Apixaban [Eliquis] 1 tab PO BID 01/06/23 01/06/23 - PHYSICAL EXAM AT DISCHARGE General Appearance: positive: No acute distress, Alert Eyes Bilateral: positive: Normal inspection, EOMI ENT: positive: ENT inspection nml, No signs of dehydration Neck: positive: Nml inspection, No JVD Respiratory: positive: No respiratory distress, Breath sounds nml Cardiovascular: positive: Regular rate & rhythm, No murmur Abdomen: positive: Non-tender, Nml bowel sounds, No distention Skin: positive: Warm, Dry, Pallor Extremities: positive: Non-tender, No pedal edema Neurologic/Psychiatric: positive: Oriented x3, Motor nml - LABS Result Diagrams: 01/07/23 06:25 01/07/23 06:25 - DIAGNOSTIC IMAGING Diagnostic Imaging Results: Final report reviewed, Read independently - FOLLOW UP Follow Up: See Dr. Reaves, her GI specialist, after discharge. - TIME SPENT Time Spent in Discharge (Minutes): 30"
== END 2023-01-07 16:00 | disposition home or self-care (01) | DRG 389 ==
LOC: ED 02:07 → MS2 06:41
PROVIDERS: ADMIT Internal Medicine; ATTEND Internal Medicine
DX: K56.609 Unspecified intestinal obstruction, unspecified as to partial versus complete obstruction (principal); D50.9 Iron deficiency anemia, unspecified; D68.2 Hereditary deficiency of other clotting factors; K50.10 Crohn's disease of large intestine without complications; I10 Essential (primary) hypertension; Z79.01 Long term (current) use of anticoagulants; Z79.899 Other long term (current) drug therapy; Z86.711 Personal history of pulmonary embolism; Z86.718 Personal history of other venous thrombosis and embolism; Z90.49 Acquired absence of other specified parts of digestive tract; Z90.710 Acquired absence of both cervix and uterus
CPT/HCPCS: 36415; 74177; 74250; 80048; 80053; 81003; 82607; 82728; 83540; 83615; 83690; 84466; 85025; 85045; 85651; 86140; 96374; 96376; 99284; 99285; A9270; J1650; J7120; J8499; Q9967; 81001; 87086

== ENCOUNTER 2023-06-14 11:21 | Outpatient (CLI) | payer MEDICARE, OTHER ==
[2023-06-14 18:03] LABS: ALBUMIN 4.3 g/dL (3.2-5.5); ALBUMIN/GLOBULIN RATIO 1.5 (1.0-2.2); BILIRUBIN,TOTAL 0.3 mg/dL (0.2-1.0); CALCIUM 9.8 mg/dL (8.5-10.3); CREATININE 0.9 mg/dL (0.6-1.3); POTASSIUM 4.6 mmol/L (3.5-4.5); TOTAL PROTEIN 7.1 g/dL (6.4-8.9)
== END 2023-06-14 11:22 | disposition home or self-care (01) ==
LOC: LAB.N 11:21
PROVIDERS: ATTEND Internal Medicine Gastroenterology
DX: K50.00 Crohn's disease of small intestine without complications (principal)
CPT/HCPCS: 36415; 80053; 85025

== ENCOUNTER 2023-06-27 11:10 | Outpatient (CLI) | payer MEDICARE, OTHER ==
[2023-06-27 18:21] LABS: BASOPHILS # (AUTO) 0.1 10^3/uL (0.0-0.1); BASOPHILS % (AUTO) 0.8 %; EOSINOPHILS % (AUTO) 0.3 %; HCT - HEMATOCRIT 37.6 % (37.0-47.0); HGB - HEMOGLOBIN 11.3 g/dL (12.0-16.0); LYMPHOCYTES # (AUTO) 1.2 10^3/uL (1.5-3.5); MEAN CORPUSCULAR HEMOGLOBIN 27.4 pg (27.0-31.0); MEAN CORPUSCULAR HGB CONC 30.1 g/dL (32.0-36.0); MEAN CORPUSCULAR VOLUME 91.3 fL (81.0-99.0); MEAN PLATELET VOLUME 9.6 fL (7.9-10.8); MONOCYTES # (AUTO) 0.6 10^3/uL (0.0-1.0); MONOCYTES % (AUTO) 9.9 %; NEUTROPHILS # (AUTO) 4.3 10^3/uL (1.5-6.6); NEUTROPHILS % (AUTO) 68.7 %; PLT - PLATELET COUNT 312 10^3/uL (130-450); RED BLOOD COUNT 4.12 10^6/uL (4.20-5.40); RED CELL DISTRIBUTION WIDTH 14.5 % (12.0-15.0); WHITE BLOOD COUNT 6.2 x10^3/uL (4.8-10.8)
[2023-06-27 18:43] LABS: ALBUMIN 4.4 g/dL (3.2-5.5); ALBUMIN/GLOBULIN RATIO 1.6 (1.0-2.2); BILIRUBIN,TOTAL 0.5 mg/dL (0.2-1.0); CALCIUM 9.5 mg/dL (8.5-10.3); CREATININE 0.9 mg/dL (0.6-1.3); POTASSIUM 4.3 mmol/L (3.5-4.5); TOTAL PROTEIN 7.1 g/dL (6.4-8.9)
== END 2023-06-27 11:11 | disposition home or self-care (01) ==
LOC: LAB.N 11:10
PROVIDERS: ATTEND Internal Medicine Gastroenterology
DX: K50.00 Crohn's disease of small intestine without complications (principal)
CPT/HCPCS: 36415; 80053; 85025

== ENCOUNTER 2023-08-02 10:26 | Outpatient (CLI) | payer MEDICARE, OTHER ==
[2023-08-02 12:17] LABS: BASOPHILS % (AUTO) 0.4 %; EOSINOPHILS % (AUTO) 0.4 %; HCT - HEMATOCRIT 36.9 % (37.0-47.0); HGB - HEMOGLOBIN 11.5 g/dL (12.0-16.0); LYMPHOCYTES # (AUTO) 1.2 10^3/uL (1.5-3.5); LYMPHOCYTES % (AUTO) 24.5 %; MEAN CORPUSCULAR HEMOGLOBIN 27.6 pg (27.0-31.0); MEAN CORPUSCULAR HGB CONC 31.2 g/dL (32.0-36.0); MEAN CORPUSCULAR VOLUME 88.5 fL (81.0-99.0); MEAN PLATELET VOLUME 9.6 fL (7.9-10.8); MONOCYTES # (AUTO) 0.5 10^3/uL (0.0-1.0); MONOCYTES % (AUTO) 10.6 %; NEUTROPHILS # (AUTO) 3.2 10^3/uL (1.5-6.6); NEUTROPHILS % (AUTO) 63.9 %; PLT - PLATELET COUNT 381 10^3/uL (130-450); RED BLOOD COUNT 4.17 10^6/uL (4.20-5.40); RED CELL DISTRIBUTION WIDTH 15.9 % (12.0-15.0)
[2023-08-02 12:47] LABS: FERRITIN 14.4 ng/mL (11.0-306.8)
== END 2023-08-02 10:27 | disposition home or self-care (01) ==
LOC: LAB.N 10:26
PROVIDERS: ATTEND Internal Medicine Hematology & Oncology
DX: D50.0 Iron deficiency anemia secondary to blood loss (chronic) (principal); I82.90 Acute embolism and thrombosis of unspecified vein
CPT/HCPCS: 36415; 82728; 83540; 84466; 85025

== ENCOUNTER 2023-11-16 14:59 | Outpatient (CLI) | payer MEDICARE, OTHER ==
[2023-11-16 17:42] LABS: BASOPHILS % (AUTO) 0.7 %; EOSINOPHILS % (AUTO) 0.4 %; HCT - HEMATOCRIT 36.2 % (37.0-47.0); HGB - HEMOGLOBIN 11.7 g/dL (12.0-16.0); LYMPHOCYTES # (AUTO) 1.1 10^3/uL (1.5-3.5); LYMPHOCYTES % (AUTO) 24.8 %; MEAN CORPUSCULAR HEMOGLOBIN 32.9 pg (27.0-31.0); MEAN CORPUSCULAR HGB CONC 32.3 g/dL (32.0-36.0); MEAN CORPUSCULAR VOLUME 101.7 fL (81.0-99.0); MEAN PLATELET VOLUME 9.7 fL (7.9-10.8); MONOCYTES # (AUTO) 0.5 10^3/uL (0.0-1.0); NEUTROPHILS # (AUTO) 2.9 10^3/uL (1.5-6.6); NEUTROPHILS % (AUTO) 63.9 %; PLT - PLATELET COUNT 242 10^3/uL (130-450); RED BLOOD COUNT 3.56 10^6/uL (4.20-5.40); RED CELL DISTRIBUTION WIDTH 13.5 % (12.0-15.0); WHITE BLOOD COUNT 4.6 x10^3/uL (4.8-10.8)
== END 2023-11-16 15:00 | disposition home or self-care (01) ==
LOC: LAB.N 14:59
PROVIDERS: ATTEND Internal Medicine Hematology & Oncology
DX: D50.0 Iron deficiency anemia secondary to blood loss (chronic) (principal); I82.90 Acute embolism and thrombosis of unspecified vein
CPT/HCPCS: 36415; 85025